=== PATIENT | female | born 2000 | race Caucasian/White ===

== ENCOUNTER 2021-10-15 10:03 | Emergency (ER) | payer OTHER, SELFPAY ==
[2021-10-15] VITALS (33 sets, daily range): BP systolic 137; BP diastolic 78; PULSE 87–118; RESP 9–29; TEMP 36.7; O2SAT 97–100
--- NOTE | 2021-10-15 10:00 | RT.EKG_ITS ---
APPROVED REPORT Exam: Resting ECG Reason for Exam: SOB/PE Patient Location: E HR:83 bpm ECG Measurements Heart Rate 83 AXIS NV 161 P 73 QRSd 87 QRS 76 QT 372 T 43 QTc 437 Conclusion Sinus rhythm...normal P axis, V-rate 60- 99 no STEMI, non-diagnostic EKG I have reviewed and interpreted ECG and agree with software generated interpretation.
[2021-10-15 10:52] LABS: Abs Immature Grans 0.02 10^3/uL (0.0-0.06); Absolute Basophil Count 0.05 10^3/uL (0.0-0.2); Absolute Eosinophil Count 0.01 10^3/uL (0.0-0.7); Absolute Lymphocyte Count 1.47 10^3/uL (1.2-3.4); Absolute Monocyte Count 0.68 10^3/uL (0.1-0.8); Absolute Neutrophil Count 9.44 10^3/uL (1.2-6.7); Basophils % 0.4; Eosinophils % 0.1; HCT 40.4 % (36.0-46.0); HGB 13.3 g/dL (11.2-15.7); Immature Grans % 0.2; Lymphocytes % 12.6; MCH 30.8 pg (27.0-33.0); MCHC 32.9 % (32.0-36.0); MCV 93.5 fL (80-95); MPV 10.1 fL (8.0-11.0); Monocytes % 5.8; Neutrophils % 80.9; Nucleated RBC 0 %; Platelet Count 300 10^3/uL (130-400); RBC 4.32 10^6/uL (3.93-5.22); RDW 12.4 % (11.7-14.6); RDW-SD 42.8 fL; WBC 11.67 10^3/uL (4.4-10.8)
[2021-10-15] MEDS: Normal Saline 1,000 ML 1000 ML IV ×2 (10:58→11:41)
[2021-10-15] MEDS: Ondansetron 4 MG/2 ML VIAL IVP (10:58)
[2021-10-15] MEDS: Normal Saline Flush 10 ML SYR IVP (10:58)
--- NOTE | 2021-10-15 10:59 | ED.GENADUL_ITS ---
Discharge Plan Disposition Patient Disposition: HOME Condition: Improving Discharge Details Clinical Impression: Paroxysmal supraventricular tachycardia, UTI (urinary tract infection) Primary Care Provider: None,None ED Provider: Clifford Villarreal Home Meds and New Rx's Prescriptions: New cephalexin 500 mg capsule 500 mg PO Q12H 5 Days Qty: 10 0RF Discharge Instructions Instructions: Supraventricular Tachycardia (ED), Urinary Tract Infection in Women (ED) Additional Instructions: Please stay well-hydrated and avoid stimulants such as caffeine, weight loss pills, coffee or energy drinks. At this time your vital signs have improved but if you notice any worsening of symptoms, return of nausea, rapid heart rate, lightheadedness, or syncope return immediately to the emergency department for reassessment. Take your antibiotics as prescribed and we will call you after your urine culture has returned and we need to change your antibiotics. Referrals: [facility] [Provider Group] (Please call the office tomorrow for arrangement of follow-up appointment) Discharge Data Discharge Date/Time-TO BE ENTERED AT DEPARTURE: 10/15/21 15:28 Medical Decision Making Patient presenting to the emergency department for chief complaint of rapid heart rate. Patient reports this morning she woke up feeling nauseous and general malaise. Patient went to work and due to continued not feel well checked her heart rate which was in the 150s. Patient performed the vagal maneuvers which helped for 5 minutes then heart rate escalated again. She performed the vagal maneuvers again which helped. Patient did have slight episode of left-sided chest pain during the event but now has resolved. Patient does state previous history of SVT but has not had recurrent. Patient denies any other symptoms. Physical exam is unremarkable. Plan on performing standard screening labs including troponin, TSH, and D-dimer. Will give patient some IV fluids pending results. EKG performed and please see physician interpretation for full report but patient appears to be in sinus rhythm with heart rate in the 80s. phototypesetting equipment monitor shows average heart rate in the mid 90s. Review of initial labs show mild white count with elevated neutrophils, CMP with anion gap of 12.1 and total protein of 8.7 leading me to believe slight dehydration, normal TSH, still pending D-dimer, and urine that does show ketones protein moderate leukocyte esterase and greater than 50 WBCs. Microscopic teri lysis also shows many bacteria. I am concerned for possible UTI. Discussed with patient any urinary tract symptoms and she does state flank/kidney discomfort that was intermittent a couple weeks ago but had presumably resolved. I feel that this may be precipitating event and so we will plan on giving patient additional IV fluids along with IV Rocephin. Discussed with patient amoxicillin allergy that is listed and she states that her mother informed her that as a child she had a rash but denies any other symptoms. Did discuss with patient possible cross-reactivity but I do feel comfortable giving patient initial IV dose while pending for further cardiac work-up for SVT. Repeat EKG continues to show sinus rhythm in the mid 90s. See physician interpretation for EKG. Reassessed patient and she states resolution of symptoms and stating significant improvement. Did speak with hotel valet attendant Dr. Cespedes. She recommended outpatient follow-up with cardiology but otherwise after discussion of case and resolved SVT that no further outpatient work-up or medications were recommended at this time. Did inform her that patient did have acute UTI which we are treating. Patient placed upon care management list for follow-up to hotel valet attendant and patient is reasonable and reliable to return for any new or worsening symptoms. After discussion of diagnosis and plan of care patient has no further needs, questions, or concerns and states clear understanding to return to the emergency department for any worsening symptoms. Lab Data Lab results reviewed: Yes I reviewed the patient's lab results. Labs: 10/15/21 10:56 Urine - Reflex from Ua Urine Culture - Pending Laboratory Tests Range/Units 10/15/21 10/15/21 10/15/21 10:22 10:40 10:40 WBC (4.4-10.8) 10^3/uL 11.67 H RBC (3.93-5.22) 10^6/uL 4.32 Hgb (11.2-15.7) g/dL 13.3 Hct (36.0-46.0) % 40.4 MCV (80-95) fL 93.5 MCH (27.0-33.0) pg 30.8 MCHC (32.0-36.0) % 32.9 RDW (11.7-14.6) % 12.4 Plt Count (130-400) 10^3/uL 300 MPV (8.0-11.0) fL 10.1 Immature Gran % 0.2 Neutrophils % 80.9 Lymphocytes % 12.6 Monocytes % 5.8 Eosinophils % 0.1 Basophils % 0.4 Nucleated RBC % % 0 Absolute Neutrophils (1.2-6.7) 10^3/uL 9.44 H Absolute Lymphocytes (1.2-3.4) 10^3/uL 1.47 Absolute Monocytes (0.1-0.8) 10^3/uL 0.68 Absolute Eosinophils (0.0-0.7) 10^3/uL 0.01 Absolute Basophils (0.0-0.2) 10^3/uL 0.05 D-Dimer (<500) ng/mlFEU Sodium (136-145) mmol/L 140 Potassium (3.5-5.1) mmol/L 3.5 Chloride (98-107) mmol/L 103 Carbon Dioxide (21.0-32.0) mmol/L 24.9 Anion Gap (3-11) mmol/L 12.1 H BUN (7-18) mg/dL 9 Creatinine (0.55-1.02) mg/dL 0.7 Estimated GFR/1.73 m2 (mL/min/1.73m2) >= 60.00 Glucose (74-106) mg/dL 93 Calcium (8.5-10.1) mg/dL 9.4 Magnesium (1.8-2.4) mg/dL 1.9 Total Bilirubin (0.2-1.0) mg/dL 0.4 AST (15-37) U/L 21 ALT (14-59) U/L 21 Alkaline Phosphatase (46-116) U/L 82 Troponin I Cancelled Total Protein (6.4-8.2) g/dL 8.7 H Albumin (3.4-5.0) g/dL 4.9 TSH (0.36-3.74) uIU/mL 1.61 Urine Color (Yellow) Urine Clarity (Clear) Urine pH (5-8) Ur Specific [place] (1.005-1.025) Urine Protein (Negative) mg/dL Urine Ketones (Negative) mg/dL Urine Blood (Negative) Urine Nitrite (Negative) Urine Bilirubin (Negative) Urine Urobilinogen (Up TO 0.2) EU/dL Ur Leukocyte Esterase (Negative) Urine RBC (0-2) HPF Urine WBC (0-5) HPF Ur Epithelial Cells (Negative) HPF Urine Crystals (Negative) HPF Urine Bacteria (Negative) HPF Urine Mucus (Negative) Urine Other (Negative) Ur Culture Indicated? Urine Glucose (Negative) mg/dL Range/Units 10/15/21 10/15/21 10/15/21 10:40 10:56 14:18 WBC (4.4-10.8) 10^3/uL RBC (3.93-5.22) 10^6/uL Hgb (11.2-15.7) g/dL Hct (36.0-46.0) % MCV (80-95) fL MCH (27.0-33.0) pg MCHC (32.0-36.0) % RDW (11.7-14.6) % Plt Count (130-400) 10^3/uL MPV (8.0-11.0) fL Immature Gran % Neutrophils % Lymphocytes % Monocytes % Eosinophils % Basophils % Nucleated RBC % % Absolute Neutrophils (1.2-6.7) 10^3/uL Absolute Lymphocytes (1.2-3.4) 10^3/uL Absolute Monocytes (0.1-0.8) 10^3/uL Absolute Eosinophils (0.0-0.7) 10^3/uL Absolute Basophils (0.0-0.2) 10^3/uL D-Dimer (<500) ng/mlFEU 147 Sodium (136-145) mmol/L Potassium (3.5-5.1) mmol/L Chloride (98-107) mmol/L Carbon Dioxide (21.0-32.0) mmol/L Anion Gap (3-11) mmol/L BUN (7-18) mg/dL Creatinine (0.55-1.02) mg/dL Estimated GFR/1.73 m2 (mL/min/1.73m2) Glucose (74-106) mg/dL Calcium (8.5-10.1) mg/dL Magnesium (1.8-2.4) mg/dL Total Bilirubin (0.2-1.0) mg/dL AST (15-37) U/L ALT (14-59) U/L Alkaline Phosphatase (46-116) U/L Troponin I < 50 Total Protein (6.4-8.2) g/dL Albumin (3.4-5.0) g/dL TSH (0.36-3.74) uIU/mL Urine Color (Yellow) Yellow Urine Clarity (Clear) Sl Cloudy Urine pH (5-8) 7.5 Ur Specific [place] (1.005-1.025) 1.020 Urine Protein (Negative) mg/dL Trace H Urine Ketones (Negative) mg/dL 15 H Urine Blood (Negative) Negative Urine Nitrite (Negative) Negative Urine Bilirubin (Negative) Negative Urine Urobilinogen (Up TO 0.2) EU/dL 0.2 Ur Leukocyte Esterase (Negative) Moderate H Urine RBC (0-2) HPF 0-2 Urine WBC (0-5) HPF >50 H Ur Epithelial Cells (Negative) HPF Few Urine Crystals (Negative) HPF Negative Urine Bacteria (Negative) HPF Many Urine Mucus (Negative) Negative Urine Other (Negative) Rare Renal Ur Culture Indicated? Yes Urine Glucose (Negative) mg/dL Negative HPI General Mode of arrival: ambulatory . Date/Time Provider Initiated Documentation: 10/15/21 10:05 . Limitations to Documentation: no limitations . Information obtained by: patient . History of Present Illness 21 year old F presents to the emergency department with the chief complaint of Rapid heart rate, described as moderate and similar to prior episodes, with intensity rated at 4. Quality is described as aching, and is localized to the chest. Patient reports no radiation. Patient started experiencing this hour(s) (4) and it has been constant. improves with No relieving factors improve symptom(s), No exacerbating factors reported . Patient notes no other symptoms.. Patient did receive the following treatments prior to arrival, other (Vagal maneuvers) Related Data Home Medications Medication Instructions Recorded Confirmed cephalexin 500 mg capsule 500 mg PO Q12H 5 Days #10 cap 10/15/21 Previous Rx's Medication Instructions Recorded cephalexin 500 mg capsule 500 mg PO Q12H 5 Days #10 cap 10/15/21 Allergies Allergy/AdvReac Type Severity Reaction Status Date / Time amoxicillin AdvReac Unverified 10/15/21 10:21 General Stated Complaint: Palpitatns LILLI: 2 Review of Systems Constitutional Constitutional: Denies chills, Denies fever(s) and Reports malaise Cardiovascular Cardiovascular: Reports as per HPI, Reports chest pain (now resolved), Denies chest pain with activity, Denies syncope, Reports rapid heart rate, Reports palpitations and Reports dyspnea Respiratory Respiratory: Denies cough, Denies hemoptysis and Reports dyspnea Gastrointestinal Gastrointestinal: Denies abdominal pain, Reports nausea and Denies vomiting Neurologic Neurologic: Denies syncope Psychiatric Psychiatric: Denies anxiety Endocrine Endocrine: Denies cold intolerance, Denies heat intolerance and Reports palpitations PFSH All Active Problems (Updated 10/15/21 @ 15:18 by Clifford Villarreal NP) Paroxysmal supraventricular tachycardia (Acute) UTI (urinary tract infection) (Acute) Medical History SVT (supraventricular tachycardia) Social History Smoking/Tobacco Use Status: Never Smoking risk assessment performed?: Yes Drug use: Never Substance use type: does not use Do you feel safe at home: Yes Do you feel safe in your relationship?: Yes Exam Const General: cooperative, healthy appearing, comfortable, no acute distress, not diaphoretic and not ill appearing Nutritional Appearance: average body habitus Orientation: alert, awake and oriented x3 Limitations: mental status not altered Neck Neck: normal visual inspection, full ROM, trachea midline, supple and no anterior neck swelling Thyroid: thyroid normal Carotids: normal carotid upstroke and no bruits Resp Effort & Inspection: normal respiratory effort and able to speak in complete sentences Auscultation: clear to auscultation bilaterally Cardio Jugular venous pressure: no JVD Palpation: normal PMI Rate: tachycardic Rhythm: regular rhythm Heart Sounds: S1 normal, S2 normal, no click, no gallops, no murmurs and no rubs Bruits: no abdominal aortic bruits and no carotid bruits Pulses: radial pulses present bilaterally 2+ GI Inspection: normal to inspection Palpation: soft, no aortic enlargement, no pulsatile masses and nontender Skin General skin exam: no rashes or lesions noted and no mottling Neuro General: patient alert, patient awake, patient oriented x3, tone normal and moves all extremities Course Vital Signs Vital signs: Vital Signs Temperature 36.7 C 10/15/21 10:16 Pulse 105 H 10/15/21 10:16 Respiratory Rate 12 10/15/21 10:16 Blood Pressure 137/78 10/15/21 10:16 Pulse Oximetry 100 10/15/21 10:16 Temperature 36.7 C 10/15/21 10:16 Temperature Source Temporal Artery Scan 10/15/21 10:16 Pulse 105 H 10/15/21 10:16 Respiratory Rate 12 10/15/21 10:16 Respiratory Effort Non-Labored 10/15/21 10:19 Blood Pressure 137/78 10/15/21 10:16 Blood Pressure Position Sitting 10/15/21 10:16 Pulse Oximetry 100 10/15/21 10:16 Oxygen Delivery Method Room Air 10/15/21 10:16 Oxygen Flow Rate 0 10/15/21 10:16 Pain Level 5 10/15/21 10:16 Lab/Test Results Lab/Test Results: Laboratory Tests Range/Units 10/15/21 10/15/21 10:22 10:40 WBC (4.4-10.8) 10^3/uL 11.67 H RBC (3.93-5.22) 10^6/uL 4.32 Hgb (11.2-15.7) g/dL 13.3 Hct (36.0-46.0) % 40.4 MCV (80-95) fL 93.5 MCH (27.0-33.0) pg 30.8 MCHC (32.0-36.0) % 32.9 RDW (11.7-14.6) % 12.4 Plt Count (130-400) 10^3/uL 300 MPV (8.0-11.0) fL 10.1 Immature Gran % 0.2 Neutrophils % 80.9 Lymphocytes % 12.6 Monocytes % 5.8 Eosinophils % 0.1 Basophils % 0.4 Nucleated RBC % % 0 Absolute Neutrophils (1.2-6.7) 10^3/uL 9.44 H Absolute Lymphocytes (1.2-3.4) 10^3/uL 1.47 Absolute Monocytes (0.1-0.8) 10^3/uL 0.68 Absolute Eosinophils (0.0-0.7) 10^3/uL 0.01 Absolute Basophils (0.0-0.2) 10^3/uL 0.05 Troponin I Cancelled PAWSS Have you Been Recently Intoxicated or Drunk Within the Last 30 days?: No Have you Ever Experienced Previous Episodes of Alcohol Withdrawal?: No Have you ever Experienced Withdrawal Seizures?: No Have you ever Experienced Delirium Tremens(DT)s?: No Have you ever undergone Alcohol Rehabilitation Treatment (i.e, inpt ot outpatient treatment programs)?: No Have you ever Experienced Blackouts?: No Have you ever Combined Alcohol with other Downers within the last 90 days?: No Have you ever Combined Alcohol with any other Substance of Abuse during the last 90 days?: No Positive Blood Alcohol level on Presentation? [PCS.BAL]: No Evidence of Increased Autonomic Activity (i.e. HR>120, tremor, sweating, agitation, nausea)?: No Result: 0
[2021-10-15 11:08] LABS: Bilirubin Negative (Negative); Blood Negative (Negative); Clarity Sl Cloudy (Clear); Glucose Negative (Negative); Ketones 15 mg/dL (Negative); Leukocyte Esterase Moderate (Negative); Nitrite Negative (Negative); Urobilinogen 0.2 EU/dL (Up TO 0.2); pH 7.5 (5-8)
[2021-10-15 11:18] LABS: ALT 21 U/L (14-59); AST 21 U/L (15-37); Albumin 4.9 g/dL (3.4-5.0); Alkaline Phosphatase 82 U/L (46-116); Anion Gap 12.1 mmol/L (3-11); BUN 9 mg/dL (7-18); Bilirubin, Total 0.4 mg/dL (0.2-1.0); CO2 24.9 mmol/L (21.0-32.0); CREATININE 0.7 mg/dL (0.55-1.02); Calcium 9.4 mg/dL (8.5-10.1); Chloride 103 mmol/L (98-107); Glucose 93 mg/dL (74-106); Magnesium 1.9 mg/dL (1.8-2.4); Potassium 3.5 mmol/L (3.5-5.1); Sodium 140 mmol/L (136-145); TSH (W/Ref FT4) 1.61 uIU/mL (0.36-3.74); Total Protein 8.7 g/dL (6.4-8.2)
[2021-10-15 11:24] LABS: RBC 0-2 HPF (0-2); WBC >50 HPF (0-5)
[2021-10-15 11:25] LABS: Bacteria Many HPF (Negative); C & S Indicated? Yes; Crystals Negative HPF (Negative); Epithelial Cells Few HPF (Negative); Mucus Negative (Negative); Other Cells Rare Renal (Negative)
[2021-10-15 11:34] LABS: D-Dimer 147 ng/mlFEU (<500)
[2021-10-15] MEDS: cefTRIAXone 1 GM/50 ML BAG IVPB (11:41)
--- NOTE | 2021-10-15 13:30 | RT.EKG_ITS ---
APPROVED REPORT Exam: Resting ECG Reason for Exam: Tachycardia Patient Location: E HR:93 bpm ECG Measurements Heart Rate 93 AXIS OH 179 P 68 QRSd 89 QRS 75 QT 357 T 16 QTc 445 Conclusion Sinus rhythm...normal P axis, V-rate 60- 99 I have reviewed and interpreted ECG and agree with software generated interpretation.
[2021-10-15 14:59] LABS: Troponin I < 50 ng/L (<or=60)
--- NOTE | 2021-10-15 15:24 | NUR.NOTE ---
Cardiology referral for SVTs within 1-2 weeks sent by Joselito RUIZ.
== END 2021-10-15 15:28 | disposition home or self-care (01) ==
PROVIDERS: Emergency Provider Nurse Practitioner Family
DX: I47.1 Supraventricular tachycardia (principal); N39.0 Urinary tract infection, site not specified; B95.1 Streptococcus, group B, as the cause of diseases classified elsewhere; R07.9 Chest pain, unspecified
CPT/HCPCS: 36415; 80053; 81025; 87077; 93005; 96361; 96365; 96375; 99284; 81003; 81015; 83735; 84443; 84484; 85025; 85379; 87086; 93010; J0696; J2405

== ENCOUNTER 2022-04-05 14:12 | Emergency (ER) | payer OTHER, SELFPAY ==
--- NOTE | 2022-04-05 14:14 | ED.GENADUL_ITS ---
Discharge Plan Disposition Patient Disposition: HOME Condition: Stable Discharge Details Clinical Impression: Viral syndrome Primary Care Provider: None,None ED Provider: Bert William Discharge Instructions Instructions: Viral Syndrome (ED) Additional Instructions: Please continue with acetaminophen and/or ibuprofen at home for fevers and body aches. Please return to the emergency department he develop any worsening symptoms such as uncontrolled fevers shortness of breath productive cough chills sweats or other abnormal symptoms Medical Decision Making 21-year-old female no past medical history presents with generalized fatigue dry cough intermittent fevers in the setting of recent COVID. Nontoxic no acute distress. No respiratory distress. Likely residual viral symptomatology. Lo wer suspicion for superimposed pneumonia or serious bacterial infection. Will trial dexamethasone for anti-inflammatory purposes. Home care instructions and return precautions to be given. HPI General Date/Time Provider Initiated Documentation: 04/05/22 14:13 . HPI Narrative: 21-year-old female no past medical history presents with generalized fatigue cough intermittent fevers in the setting of having recent COVID. Related Data Allergies Allergy/AdvReac Type Severity Reaction Status Date / Time amoxicillin AdvReac Unverified 10/15/21 10:21 General LILLI: 2 Review of Systems Narrative: Review of Systems Constitutional: negative Eyes: negative ENT: negative Cardiovascular: negative Respiratory: negative Gastrointestinal: negative : negative Musculoskeletal: negative Skin: negative Neurologic: negative Psych: negative PFSH All Active Problems (Updated 04/05/22 @ 14:18 by Bert William MD) Viral syndrome (Acute) Medical History SVT (supraventricular tachycardia) Social History Smoking/Tobacco Use Status: Never Smoking risk assessment performed?: Yes Drug use: Never Substance use type: does not use Do you feel safe at home: Yes Do you feel safe in your relationship?: Yes Exam Narrative Exam Narrative: Physical Examination General: alert, awake, cooperative, resting comfortably, no acute distress HEENT: normocephalic, atraumatic; PERRL, EOM intact, conjunctiva normal; no nasal discharge; moist mucous membranes, oral and pharyngeal mucosa normal, tolerating secretions Neck: supple, trachea midline; full ROM Chest: normal to inspection Respiratory: normal respiratory effort, speaking in full sentences, clear to auscultation, no wheezing, rales or rhonchi Cardiac: regular rate, regular rhythm, S1S2 intact, no murmurs rubs or gallops GI: abdomen soft, non-tender, non-distended; no palpable mass or hepatosplenomegaly Skin: no lesions, rashes or trauma appreciated Neuro: AAOx3, normal speech, moving all extremities Psych: Appropriate mood and affect
[2022-04-05 14:20] VITALS: BP 142/84; PULSE 102; RESP 20; TEMP 37.9; O2SAT 98
[2022-04-05 14:28] VITALS: RESP 17
[2022-04-05] MEDS: Dexamethasone 10 MG/ML VIAL IVP (14:28)
== END 2022-04-05 14:48 | disposition home or self-care (01) ==
LOC: ER 14:26
PROVIDERS: Emergency Provider Emergency Medicine
DX: B34.9 Viral infection, unspecified (principal); Z86.16 Personal history of COVID-19
CPT/HCPCS: 96374; 99284; J1100

== ENCOUNTER 2022-11-27 10:24 | Outpatient (REF) | payer OTHER, SELFPAY ==
[2022-11-27 13:53] LABS: Bilirubin Negative (Negative); Blood Small (Negative); Clarity Clear (Clear); Glucose Negative (Negative); Ketones Negative (Negative); Leukocyte Esterase Trace (Negative); Nitrite Negative (Negative); Specific Gravity 1.015 (1.005-1.025); Urobilinogen 0.2 mg/dL (Up to 0.2)
[2022-11-27 13:59] LABS: Bacteria Rare HPF (Negative); C & S Indicated? No/Sq. Contamination; Casts Negative LPF (Negative); Crystals Negative HPF (Negative); Epithelial Cells Moderate HPF (Negative); Mucus Negative (Negative); WBC 0-2 HPF (0-5)
== END 2022-11-27 10:25 | disposition home or self-care (01) ==
LOC: LBN 10:24
PROVIDERS: Visit Provider Nurse Practitioner Family
DX: R39.89 Other symptoms and signs involving the genitourinary system (principal); N39.0 Urinary tract infection, site not specified
CPT/HCPCS: 81003; 81015

== ENCOUNTER 2023-06-19 07:55 | Emergency (ER) | payer OTHER, SELFPAY ==
[2023-06-19 07:58] VITALS: BP 159/95; PULSE 104; RESP 16; TEMP 37.2; O2SAT 98
[2023-06-19 08:34] VITALS: O2SAT 100
[2023-06-19] MEDS: diazePAM 10 MG/2 ML SYR 5 MG IVP ×2 (08:34→09:14)
[2023-06-19] MEDS: Ketorolac 15 MG/ML VIAL 7.5 MG IVP (08:34)
[2023-06-19] MEDS: Dexamethasone 10 MG/ML VIAL IVP (09:14)
--- NOTE | 2023-06-19 10:00 | ED.GENADUL_ITS ---
Discharge Plan Disposition Patient Disposition: Home Discharge Details Clinical Impression: Acute torticollis Primary Care Provider: Unknown,Unknown ED Provider: Miracle Bennett Home Meds and New Rx's Prescriptions: New diazepam [Valium] 5 mg tablet 5 mg PO TID PRNQty: 6 0RF Continued venlafaxine 75 mg tablet extended release 24hr 75 mg PO DAILY venlafaxine 37.5 mg tablet 37.5 mg PO DAILY valacyclovir [Valtrex] 500 mg tablet 500 mg PO DAILY Discharge Instructions Instructions: Spasmodic Torticollis (ED) Additional Instructions: Take ibuprofen 600 mg every 8 hours with food for pain control Warm compresses You may take the Valium, 5 to 10 mg every 8 hours as needed for muscle spasm and pain Do not drive for 8 hours after taking this medication You may take Tylenol 650 every 4-6 hours for breakthrough pain Return earlier with fever, chills, strength or sensation changes to extremities Stand Alone Forms: Work Release Discharge Data Discharge Date/Time-TO BE ENTERED AT DEPARTURE: 06/19/23 10:23 Medical Decision Making 22-year-old female, otherwise healthy presents with left-sided neck pain, exam consistent with torticollis, no clinical evidence consistent with meningitis or cervical radiculopathy, given Toradol, and 10 mg of Valium with good improvement in symptoms, still slightly limited range of motion, Valium supplied for home Strength and sensation intact distally Ibuprofen and Tylenol encouraged Return precautions reviewed and patient expressed understanding Discharge home stable condition with improved symptoms and neurologically intact HPI General Date/Time Provider Initiated Documentation: 06/19/23 08:04 . HPI Narrative: This 22-year-old female presents with report of left neck pain and difficulty ranging laterally which started upon waking at 3 AM. Denies fever chills, denies strength or sensation changes distally. Denies vision change or headache. Denies chance of . Denies history of similar symptoms in the past. Related Data Home Medications Medication Instructions Recorded Confirmed valacyclovir 500 mg tablet 500 mg PO DAILY 11/27/22 (Valtrex) venlafaxine 37.5 mg tablet 37.5 mg PO DAILY 11/27/22 venlafaxine 75 mg tablet,extended 75 mg PO DAILY 11/27/22 release 24 hr diazepam 5 mg tablet (Valium) 5 mg PO TID PRN #6 tabs 06/19/23 Previous Rx's Medication Instructions Recorded diazepam 5 mg tablet (Valium) 5 mg PO TID PRN #6 tabs 06/19/23 Allergies Allergy/AdvReac Type Severity Reaction Status Date / Time amoxicillin AdvReac Unverified 11/27/22 09:55 General Stated Complaint: Nk/Back Pain LILLI: 3 PFSH All Active Problems (Updated 06/19/23 @ 10:02 by MILTON Drew) Acute torticollis (Acute) Medical History SVT (supraventricular tachycardia) Social History Smoking/Tobacco Use Status: Never Smoking risk assessment performed?: Yes Drug use: Never Substance use type: does not use Do you feel safe at home: Yes Do you feel safe in your relationship?: Yes Course Vital Signs Vital signs: Vital Signs Temperature 37.2 C 06/19/23 07:58 Pulse 104 H 06/19/23 07:58 Respiratory Rate 16 06/19/23 07:58 Blood Pressure 159/95 H 06/19/23 07:58 Pulse Oximetry 98 06/19/23 07:58 Temperature 37.2 C 06/19/23 07:58 Temperature Source Skin 06/19/23 07:58 Pulse 104 H 06/19/23 07:58 Respiratory Rate 16 06/19/23 07:58 Respiratory Effort Normal 06/19/23 08:04 Blood Pressure 159/95 H 06/19/23 07:58 Blood Pressure Position Sitting 06/19/23 07:58 Pulse Oximetry 100 06/19/23 08:34 Oxygen Delivery Method Room Air 06/19/23 07:58 Oxygen Flow Rate 0 06/19/23 07:58 Pain Level 8 06/19/23 07:58
== END 2023-06-19 10:23 | disposition home or self-care (01) ==
PROVIDERS: Emergency Provider Physician Assistant
DX: G24.3 Spasmodic torticollis (principal)
CPT/HCPCS: 96374; 96375; 96376; 99283; J1100; J1885; J3360

== ENCOUNTER 2024-06-03 13:20 | Emergency (ER) | payer OTHER, SELFPAY ==
[2024-06-03 13:27] VITALS: BP 123/80; PULSE 77; RESP 16; TEMP 36.6; O2SAT 99
--- NOTE | 2024-06-03 14:43 | ED.GENADUL_ITS ---
Discharge Plan Disposition Patient Disposition: Home Condition: Stable Discharge Details Clinical Impression: Eyebrow laceration, Chipped tooth Primary Care Provider: Unknown,Unknown ED Provider: Terry Kim Home Meds and New Rx's Prescriptions: Continued venlafaxine 75 mg tablet extended release 24hr 75 mg PO DAILY venlafaxine 37.5 mg tablet 37.5 mg PO DAILY valacyclovir [Valtrex] 500 mg tablet 500 mg PO DAILY PRN dextroamphetamine-amphetamine 30 mg capsule,extended release 24hr 30 mg PO DAILY etonogestrel-ethinyl estradiol 0.12-0.015 mg/24 hr ring 1 vag ring VAGINAL ONCE Discharge Instructions Instructions: Fractured Tooth, Laceration Repair With Stitches ED Additional Instructions: Please see your doctor, express care, or return to the emergency department for suture removal in 5 days. Please follow-up with your dentist regarding chipped tooth. Return to the ER immediately for any worsening or new concerning symptoms. HPI General Mode of arrival: ambulatory . Date/Time Provider Initiated Documentation: 06/03/24 13:58 . Limitations to Documentation: no limitations . Information obtained by: patient . HPI Narrative: 23-year-old female was at work and door impacted her left eyebrow laceration and tooth injury. This occurred just prior to arrival. Wound has been oozing blood. No loss of consciousness. No visual changes. No other symptoms. Related Data Home Medications ?Medication ?Instructions ?Recorded ?Confirmed valacyclovir 500 mg tablet 500 mg PO DAILY PRN 11/27/22 06/03/24 (Valtrex) venlafaxine 37.5 mg tablet 37.5 mg PO DAILY 11/27/22 06/03/24 venlafaxine 75 mg tablet,extended 75 mg PO DAILY 11/27/22 06/03/24 release 24 hr dextroamphetamine-amphetamine ER 30 mg PO DAILY 06/03/24 06/03/24 30 mg 24hr capsule,extend release etonogestrel 0.12 mg-ethinyl 1 vag ring vaginal ONCE 06/03/24 06/03/24 estradiol 0.015 mg/24 hr vaginal ring Allergies Allergy/AdvReac Type Severity Reaction Status Date / Time amoxicillin AdvReac Mild Dizziness/L Unverified 06/03/24 14:56 ighthead General Stated Complaint: Laceration LILLI: 4 Review of Systems ENT Ears, Nose, Mouth, and Throat: Reports as per HPI Exam Const General: cooperative and no acute distress HENMT Head: no contusions and laceration (1cm flap left eyebrow) Mouth: other (chipped tooth #9, does not appear to extend thru enamel ) Eyes Conjunctivae: normal conjunctivae Sclera: normal sclerae Pupils: PERRL EOM: EOM intact bilaterally Neuro General: patient alert, patient awake, patient oriented x3 and tone normal Course Vital Signs Vital signs: Vital Signs Temperature 36.6 C 06/03/24 13:27 Pulse 77 06/03/24 13:27 Respiratory Rate 16 06/03/24 13:27 Blood Pressure 123/80 06/03/24 13:27 Pulse Oximetry 99 06/03/24 13:27 Temperature 36.6 C 06/03/24 13:27 Temperature Source Temporal Artery Scan 06/03/24 13:27 Pulse 77 06/03/24 13:27 Respiratory Rate 16 06/03/24 13:27 Respiratory Effort Normal, Non-Labored 06/03/24 13:32 Blood Pressure 123/80 06/03/24 13:27 Blood Pressure Position Sitting 06/03/24 13:27 Pulse Oximetry 99 06/03/24 13:27 Oxygen Delivery Method Room Air 06/03/24 13:27 Oxygen Flow Rate 0 06/03/24 13:27 Pain Level 4 06/03/24 13:33 Comment no meds 06/03/24 13:27 Procedures Laceration Laceration 1: Site: face Side (If applicable): left Size (cm): 1 Description: flap Depth: simple, single layer Local anesthetic: Lidocaine 1% and with Epi Amount of anesthesia used (mL): 1 Pre-repair: wound explored and deep structures intact Skin layer closed with: other (prolene ) Size (cm): 6-0 Number of sutures: 2 Technique: simple, interrupted Medical Decision Making 1445 -- 23yo female here with facial laceration. Wound anesthetized with let and supraorbital nerve block performed after verbal consent. Primary closure was performed without complication. #2 Prolene 6-0 sutures placed. Hemostasis was achieved. Wound borders well approximated. Patient also with superficial chipped tooth #9. Usual and customary discharge instructions were reviewed. Quality:SDOH Health Related Social Needs: No Data to Display PFSH All Active Problems Chipped tooth (Acute) Eyebrow laceration (Acute) Medical History SVT (supraventricular tachycardia) Social History Smoking/Tobacco Use Status: Never Smoking risk assessment performed?: Yes Alcohol Intake: current Alcohol Intake frequency: a few times a week Alcohol type: beer Drug use: Never Substance use type: does not use Housing: house Do you feel safe at home: Yes Do you feel safe in your relationship?: Yes
[2024-06-03] MEDS: Lidocaine 1% Pres-Free W/EPI 1/200,000 30 ML VIAL IJ (14:45)
[2024-06-03] MEDS: Lidocaine/Epinephri/Tetracaine Topical Gel 3 ML (14:46)
== END 2024-06-03 14:49 | disposition home or self-care (01) ==
PROVIDERS: Emergency Provider Student in an Organized Health Care Education/Training Program
DX: S01.112A Laceration without foreign body of left eyelid and periocular area, initial encounter (principal); S02.5XXA Fracture of tooth (traumatic), initial encounter for closed fracture; W22.8XXA Striking against or struck by other objects, initial encounter; Y99.0 Civilian activity done for income or pay
CPT/HCPCS: 12011; J2004